=== PATIENT | male | born 2000 | race Caucasian/White ===

== ENCOUNTER 2021-11-18 15:41 | Emergency (ER) | payer SELFPAY ==
[2021-11-18 16:24] VITALS: BP 142/102; PULSE 86
== END 2021-11-18 16:25 | disposition home or self-care (01) ==
LOC: JP.ED 15:41
DX: K04.7 Periapical abscess without sinus (principal)
CPT/HCPCS: 99282; 99283

== ENCOUNTER 2024-04-20 03:47 | Emergency (ER) | payer SELFPAY ==
[2024-04-20 04:21] VITALS: PULSE 99
[2024-04-20 06:04] VITALS: BP 123/77
== END 2024-04-20 07:02 | disposition home or self-care (01) ==
LOC: JP.ED 03:47
DX: S02.40FA Zygomatic fracture, left side, initial encounter for closed fracture (principal); S02.85XA Fracture of orbit, unspecified, initial encounter for closed fracture; F17.210 Nicotine dependence, cigarettes, uncomplicated; Z86.16 Personal history of COVID-19; Y04.8XXA Assault by other bodily force, initial encounter
CPT/HCPCS: 70450; 70486; 99284